=== PATIENT | female | born 1950 | race Caucasian/White ===

== ENCOUNTER → 2016-11-17 | Day surgery (SDC) | payer MEDICARE ==
[~2016-11-17] MED LIST: ASPI81TA82 PO; COZA50TA PO; HYDR-3533 PO; KETOROLAC TROMETHAMINE 30 MG/ML (IVP) VIAL IV PUSH ONE; LACTATED RINGER'S 1000 ML INJ 1,000 ML ONE; MIDAZOLAM HCL 2 MG/2 ML VIAL ONE; ONDANSETRON HCL 4 MG/2 ML VIAL IV PUSH ONE; PROPOFOL 200 MG/20 ML AMP IV ONE; TAMO20TA4 PO; ceFAZolin INJ 1,000 MG VIAL ONE
--- NOTE | 2016-11-17 15:35 | MP ---
cc: QUETA FERNANDEZ MD DATE OF SURGERY 11/17/2016 PREOPERATIVE DIAGNOSIS Uterine polyps and thickened endometrial lining, on tamoxifen. POSTOPERATIVE DIAGNOSIS Uterine polyps and some mucosal fibroids. INDICATIONS The patient is a 66-year-old female with the diagnosis of breast cancer on tamoxifen. She had an ultrasound performed after exam that primary care doctor noted an enlarged uterus. The patient with known history of fibroids but on the ultrasound there was noted to be fluid in the endometrial cavity, polyps and fibroids within. Discussed with the patient that tamoxifen is an endometrial lining stimulant and can occasionally cause endometrial cancer. The patient was initially reluctant to have hysteroscopy with polypectomy but after additionally consulting with Dr. Alaniz the patient agreed to proceed. PROCEDURE PERFORMED Exam under anesthesia, hysteroscopy, polypectomy, myomectomy, dilation and curettage. SURGEON Queta Fernandez MD. [facility]. INTRAOPERATIVE FINDINGS Enlarged uterus approximately 12 weeks in size with irregular contour. The uterus was sounded to 9 cm. On hysteroscopy there was a 1.5 cm polyp in the lower uterine segment, a smaller 1 cm polyp in the right ostia, a large fibroid of the anterior lateral aspect approx 5 cm, which initially obscured visualization of the right ostia. Irregular thickening of the posterior aspect of the uterus, vaginal atrophy. SPECIMEN REMOVED Endometrial curettes, polyp and fibroid. ESTIMATED BLOOD LOSS Minimal. URINE OUTPUT 100 ml ___ at the beginning of the case. FLUID DEFICIT 285 ml of normal saline. ANESTHESIA General LMA. DVT PROPHYLAXIS SCDs bilateral extremities. PROPHYLACTIC ANTIBIOTICS Given prior to procedure, Ancef 2 grams. PROCEDURE IN DETAIL After reviewing informed consent the patient was taken to the operating room where general LMA was performed without complications. The patient was placed in the dorsal lithotomy position in [facility]. The perineum was prepped and draped in normal sterile fashion. Examination under anesthesia was performed, the intraoperative findings. A bivalve speculum was placed in the vagina. Single-tooth tenaculum was placed at the anterior lip of the cervix. The uterus was sounded to 9 cm. The cervix was dilated to #20-Haitian. Of note, with initial dilation dark red blood was noted to come out of the cervix. The diagnostic hysteroscope was introduced, the intraoperative findings. The MyoSure was introduced in the lower uterine segment, polyp was removed. The fibroid had an initial appearance of a polyp on the surface but at this was taken down, the texture and size was more consistent with that of a fibroid. This fibroid was removed to be able to visualize the right ostia and fundal portion where there was a further polyp noted. This polyp was also removed and global sampling was performed with the MyoSure. The MyoSure was then removed. A sharp curettage was also performed. The tenaculum was removed from the anterior lip of the cervix. The sponge stick was used to ensure hemostasis. The bivalve speculum was removed from the vagina. The patient was placed in dorsal supine position. Anesthesia was reversed without complication. The patient sent to PACU in stable condition. REMARKS The patient was sent to PACU in stable condition. Discussed pelvic rest times 2 weeks until she is reevaluated in clinic. Queta Fernandez MD PE/PERFECTO /2:43 PM /3:16 PM LAURIE
== END | disposition home or self-care (01) ==
LOC: ESDC 12:00
PROVIDERS: ATTEND Obstetrics & Gynecology
DX: N84.0 Polyp of corpus uteri (principal); D25.0 Submucous leiomyoma of uterus
CPT/HCPCS: 00952; 58561; 88305; J0690; J1885; J2250; J2405; J3010; J7120